=== PATIENT | male | born 1970 | race Caucasian/White ===

== ENCOUNTER → 2019-12-11 10:31 | Outpatient (CLI) | payer OTHER, SELFPAY ==
--- NOTE | ~2019-12-11 | XR_ITS ---
EXAMINATION: XR hip LT min 3V w AP pelvis, XR lumbar spine 2-3V DATE: 12/11/2019 11:36 INDICATION: TECHNIQUE: 1. Anteroposterior, lateral and coned-down lateral lumbosacral views of the lumbar spine were obtaine d. 2. Anteroposterior view of the pelvis and anteroposterior and frog-leg lateral views of the left hip were obtained. COMPARISON: Lumbar spine MR dated 09/12/2016 and left hip radiographs dated 12/26/2018. FINDINGS: Lumbar spine: Alignment is normal. Chronic minimal anterior wedging at T11 through L1. Mild disc height loss with d egenerative endplate osteophytes at L1-L2, L3-L4 and L4-L5. Mild multilevel lumbar facet osteoarthrit is. Pelvis and left hip: Bone alignment is normal. No fracture or suspected avascular necrosis. Bilateral hip joint spaces are normal. Mild bilateral sacroiliac osteoarthritis. A few phleboliths in the pelvis. IMPRESSION: 1. Mild lumbar spondylosis. 2. Mild bilateral sacroiliac osteoarthritis. Normal left hip. Reviewed, dictated and finalized at location A. IMPRESSION: 1. Mild lumbar spondylosis. 2. Mild bilateral sacroiliac osteoarthritis. Normal left hip.
== END ==
PROVIDERS: PCP Nurse Practitioner Family; Visit Provider Nurse Practitioner Family
DX: S79.919A Unspecified injury of unspecified hip, initial encounter (principal); X58.XXXA Exposure to other specified factors, initial encounter; M47.896 Other spondylosis, lumbar region; M53.3 Sacrococcygeal disorders, not elsewhere classified
CPT/HCPCS: 72100; 73502

== ENCOUNTER 2020-05-25 13:37 | Outpatient (CLI) | payer OTHER, SELFPAY ==
[2020-05-25 14:05] LABS: Hematocrit 41.5 % (42.0-52.0); Hemoglobin 11.8 g/dL (14.0-18.0); Mean Corpuscular HGB Conc 28.4 g/dl (32-36); Mean Corpuscular Volume 73.7 fl (80-100); Mean Platelet Volume 8.9 fl (7.4-10.4); Platelet Count Result 355 k/mm3 (150-375); Red Blood Count 5.63 M/mm3 (4.6-6.20); Red Cell Distribution Width 18.3 % (11.5-14.5); White Blood Count 5.1 K/mm3 (4.5-10.0)
[2020-05-25 14:20] LABS: Rheumatoid Factor < 8.6 IU/ML (<12)
[2020-05-25 14:21] LABS: Anion Gap 7 mmol/L (8-16); Blood Urea Nitrogen 11 mg/dL (9-20); CRP < 0.5 mg/dL (<1.0); Calcium 9.4 mg/dL (8.4-10.2); Carbon Dioxide 33 mmol/L (22-30); Chloride 101 mmol/L (98-107); Estimated Glomerular Filt Rate > 60; Glucose 94 mg/dL (75-110); Potassium 4.4 mmol/L (3.4-5.0); Sodium 141 mmol/L (137-145); Uric Acid 6.1 mg/dL (3.5-8.5)
[2020-05-25 14:58] LABS: Iron 21 ug/dL (49-181)
[2020-05-25 15:07] LABS: Percent Iron Saturation 4 % (20-50)
[2020-05-25 15:15] LABS: Erythrocyte Sedimentation Rate 4 mm/hr (0-20)
[2020-05-29 04:16] LABS: ANA Cascade Screen Negative (Negative)
== END 2020-05-25 13:38 | disposition home or self-care (01) ==
PROVIDERS: PCP Family Medicine; Visit Provider Nurse Practitioner Family
DX: D64.9 Anemia, unspecified (principal); D50.9 Iron deficiency anemia, unspecified; M25.50 Pain in unspecified joint
CPT/HCPCS: 36415; 80048; 83540; 83550; 84550; 85027; 85652; 86038; 86140; 86430

== ENCOUNTER 2020-10-27 14:14 | Outpatient (CLI) | payer OTHER, SELFPAY ==
[2020-10-27 14:33] LABS: Basophils Absolute Auto 0.1 K/mm3 (0.0-0.1); Basophils Percent Auto 1.1 % (0.2-1.2); Eosinophils Absolute Auto 0.3 K/mm3 (0-0.3); Eosinophils Percent Auto 5.2 % (0-4.4); Hematocrit 46.4 % (42.0-52.0); Immature Granulocyte Absolute 0.01 K/mm3 (0.00-0.031); Immature Granulocyte Percent A 0.2 % (0-0.5); Lymphocytes Absolute Auto 1.71 K/mm3 (0.9-3.2); Lymphocytes Percent Auto 30.4 % (18.3-44.2); Mean Corpuscular HGB Conc 32.3 g/dl (32-36); Mean Corpuscular Hemoglobin 27.8 pg (26-34); Mean Corpuscular Volume 86.1 fl (80-100); Mean Platelet Volume 9.3 fl (7.4-10.4); Monocytes Absolute Auto 0.6 K/mm3 (0.1-0.6); Neutrophils Absolute Auto 2.9 K/mm3 (1.3-6.7); Neutrophils Percent Auto 52.1 % (45.5-73.1); Platelet Count Result 294 k/mm3 (150-375); Red Blood Count 5.39 M/mm3 (4.6-6.20); Red Cell Distribution Width 16.9 % (11.5-14.5); White Blood Count 5.6 K/mm3 (4.5-10.0)
[2020-10-27 18:55] LABS: Iron 233 ug/dL (49-181)
[2020-10-27 19:05] LABS: Percent Iron Saturation 50 % (20-50)
[2020-10-27 19:07] LABS: Alanine Aminotransferase 21 U/L (4-50); Albumin Level 4.9 g/dL (3.5-5.1); Alkaline Phosphatase 52 U/L (38-126); Anion Gap 12 mmol/L (8-16); Aspartate Amino Transferase 26 U/L (17-59); Bilirubin,Total 0.5 mg/dL (0.2-1.3); Blood Urea Nitrogen 8 mg/dL (9-20); Calcium 10.1 mg/dL (8.4-10.2); Carbon Dioxide 26 mmol/L (22-30); Chloride 101 mmol/L (98-107); Estimated Glomerular Filt Rate > 60; Glucose 89 mg/dL (75-110); Potassium 4.5 mmol/L (3.4-5.0); Sodium 139 mmol/L (137-145)
[2020-10-27 20:13] LABS: Folic Acid 12.8 ng/mL (2.76->20)
[2020-11-02 11:26] LABS: Soluble Transferrin Receptor 1.81 mg/L (0.76-1.76)
== END 2020-10-27 14:15 | disposition home or self-care (01) ==
PROVIDERS: PCP Family Medicine; Visit Provider Internal Medicine Hematology & Oncology
DX: R53.83 Other fatigue (principal); D50.9 Iron deficiency anemia, unspecified
CPT/HCPCS: 36415; 80053; 82607; 82728; 82746; 83540; 83550; 84238; 84443; 85025

== ENCOUNTER 2021-04-12 07:42 | Outpatient (CLI) | payer OTHER, SELFPAY ==
--- NOTE | ~2021-04-12 | MR_ITS ---
EXAMINATION: MR shoulder RT wo con DATE: 04/12/2021 08:33 INDICATION: Unspecified right shoulder pain TECHNIQUE: Magnetic resonance imaging (MRI) of the right shoulder was performed without intravenous c ontrast. Sequences included axial PD-weighted FS FSE, coronal oblique PD-weighted FS FSE, coronal obl ique T2-weighted FS FSE, sagittal PD-weighted FS FSE, and sagittal T1-weighted SE. COMPARISON: None. FINDINGS: Coracoacromial arch: The acromion undersurface is curved in morphology (type II). Mild thickening of the acromial side of the coracoacromial ligament. Moderate acromioclavicular osteoarthritis. Rotator cuff: Moderate supraspinatus and severe infraspinatus tendinopathy. Small intrasubstance tear measuring 2 m m AP, 7 mm AP and involving no greater than one third of the tendon thickness. There are couple small intrasubstance ganglion cysts is more medially within the infraspinatus tendon approximately 2-4 cm from the footplate suggesting intervening longitudinal split tearing. The teres minor tendon is gera l. Moderate tendinopathy at the cephalad lesser tuberosity footplate of the subscapularis tendon with out discrete tear. Normal rotator cuff muscle bulk and signal. Biceps tendon, glenoid labrum and glenohumeral cartilage: The long head biceps tendon is not visualized. Correlate for metastases glenoid anchor and retracted distally below the inferior margin of the field of imaging. Irregular degenerative tearing of the sup erior glenoid labrum from the 12:30 position anteriorly to the 11:00 position posteriorly. Additional subtle more well-defined linear tear of the inferior labrum extending from the 5:00 position anterio rly to the 8:00 position posteriorly. Glenohumeral cartilage is normal. Fluid: Physiologic amount of fluid in the glenohumeral joint. No loose osteochondral bodies. Small amount of fluid in the empty long head biceps tendon sheath. Small amount of fluid in the subacromial/subdelto id bursa consistent with mild bursitis. Bones: Normal marrow signal with no edema, fracture or abnormal marrow replacing process. Moderate cystic ch dev along the middle facet footplate of the greater tuberosity likely related to rotator cuff diseas e. IMPRESSION: 1. Moderate subscapularis and supraspinatus tendinopathy and severe infraspinatus tendinopathy bladde r with very small mild partial-thickness intrasubstance tear. 2. Complete tear and distal retraction of the long head biceps tendon. 3. Tearing of the superior and inferior glenoid labrum. 4. Moderate acromioclavicular osteoarthritis. 5. Mild subacromial/subdeltoid bursitis. Reviewed, dictated and finalized at location A. D TECH IMPRESSION: 1. Moderate subscapularis and supraspinatus tendinopathy and severe infraspinat us tendinopathy bladder with very small mild partial-thickness intrasubstance t ear. 2. Complete tear and distal retraction of the long head biceps tendon. 3. Tearing of the superior and inferior glenoid labrum. 4. Moderate acromioclavicular osteoarthritis. 5. Mild subacromial/subdeltoid bursitis.
== END 2021-04-12 07:43 | disposition home or self-care (01) ==
LOC: ANHIMG 07:43
PROVIDERS: PCP Family Medicine; Visit Provider Physician Assistant Medical
DX: M75.51 Bursitis of right shoulder (principal); S43.431A Superior glenoid labrum lesion of right shoulder, initial encounter; X58.XXXA Exposure to other specified factors, initial encounter; M19.011 Primary osteoarthritis, right shoulder
CPT/HCPCS: 73221

== ENCOUNTER → 2021-09-20 15:36 | Outpatient (CLI) | payer OTHER, SELFPAY ==
--- NOTE | ~2021-09-20 | XR_ITS ---
XR shoulder LT min 2V DATE: 09/20/2021 16:15 INDICATION: Left shoulder pain TECHNIQUE: 4 views COMPARISON: None FINDINGS: No fracture or dislocation, periosteal reaction or bone destruction or significant abnormal soft tissue calcification is evident. IMPRESSION: No significant abnormality Reviewed, dictated and finalized at location A. IMPRESSION: No significant abnormality
== END ==
PROVIDERS: PCP Family Medicine; Visit Provider Nurse Practitioner Family
DX: M25.512 Pain in left shoulder (principal)
CPT/HCPCS: 73030